=== PATIENT | female | born 1955 | race Caucasian/White ===

== ENCOUNTER → 2023-04-19 10:38 | Outpatient (REF) | payer MEDICARE, SELFPAY ==
--- NOTE | 2023-04-19 10:45 | CA_ITS ---
Transthoracic Echocardiogram Patient (Last, First, Middle): Sharron Larson, Gender: Female Date of : 1955 Age: 67 Procedure Date: 04/19/2023 Procedure Type: Transthoracic Echocardiogram Location: Short Height: 165.1 cm Weight: 72.58 kg BSA: 1.80 m2 Heart Rate: 59 bpm BP: 122 / 72 mmHg Passementerie Worker: LOIS Referring MD: Suni Davis MD Aircraft Cabin Cleaner: Bradford Freedman MD Symptoms: SOB R06.02 Study Quality: Adequate ECG Rhythm: Bradycardia Conclusions: - Essentially normal study Findings Left Ventricle Normal left ventricular size, thickness, and systolic function. The visually estimated ejection fraction is between 65-70%. Diastolic function is normal for age. Peak GLS is -21.6%, within normal limits. Right Ventricle Normal right ventricular cavity size and systolic function. Atria Both atria are normal in size. There is no evidence of interatrial shunt. Aortic Valve Normal aortic valve structure and function. There is no aortic valve stenosis. There is no aortic valve regurgitation. Mitral Valve Normal mitral valve structure and function. There is trace mitral valve regurgitation. There is no mitral valve stenosis. Pulmonic Valve The pulmonic valve is likely normal. There is trace to mild pulmonic valve regurgitation. Tricuspid Valve Normal tricuspid valve structure. There is trace tricuspid valve regurgitation. The right ventricular systolic pressure is normal. The right ventricular systolic pressure is 22 mmHg. Normal right atrial pressure. There is no evidence of pulmonary hypertension. Great Vessels All visible segments of the aorta are normal in size. The pulmonary artery was not well visualized. Venous The inferior vena cava is normal in size and collapses greater than 50% with inspiration. Pericardium/Pleural There is no evidence of pericardial effusion. Prior Study Comparison No prior study available for comparison. Measurements 2D Linear Measurements IVSd: 0.90 0.6-0.9/0.6-1.0 cm LVIDd: 4.80 3.9-5.3/4.2-5.9 cm LVIDd Index: 2.67 2.4-3.2/2.2-3.1 cm/m2 LVIDs: 3.10 2.0-3.6 cm LVPWd: 0.70 0.7-1.1 cm LA Diam: 3.40 2.7-3.8/3.0-4.0 cm LAIDs Index: 1.89 1.5-2.3 cm/m2 LV Mass: 157.61 67-162/88-224 g LV Mass Index: 87.56 43-95/49-115 g/m2 LVOT Diam: 2.00 3.0+(-)1.3 cm 2D Systolic Function EF 4C: 64.50 >55% EF 2C: 68.40 >55% EF BiP: 66.50 >55% Mitral Valve MV Pk E: 0.71 MV PK A: 0.55 MV Decel Time: 196.00 E/A: 1.30 E'Lateral: 10.70 E'Medial: 7.51 E/E' Med: 9.50 E/E' Lat: 6.60 PHT: 57.00 MVA PHT: 3.86 Decel Real: 3.63 Aortic Valve AoV Pk Lj: 1.26 AoV Pk Grad: 6.00 GRACIA: 2.27 LVOT LVOT Pk Lj: 0.92 LVOT Mn Lj: 0.62 LVOT VTI: 0.23 LVOT Pk Grad: 3.00 LVOT Mn Grad: 2.00 LVOT Diam: 2.00 LVOT Area: 3.14 Diastolic Function MV Pk E: 0.71 MV Pk A: 0.55 E/A: 1.30 E'Medial: 7.51 E/E' Med: 9.50 E' Laterial: 10.70 E/E' Lat: 6.60 Right Ventricle TAPSE (mm): 23.00 TVS' Lj: 10.20 Tricuspid Valve TR Pk Lj: 2.16 TR Pk Grad: 19.00 RA Press: 3.00 RVSP: 22.00 Great Vessels Aorta Sinus of Valsalva: 3.50 2.0-3.5 cm Ao Asc: 3.20 2.1-3.4 cm Ao Arch: 2.80 Pulmonary Veins Pulm Vein S/D 1.30 Pulmonary Valve PV Pk Lj: 0.77 Peak PV Grad: 2.00 Updated in Other Vendor System with Status of Final Bradford Freedman MD electronically signed on 04/19/2023 4:48:25 PM with status of Final
== END ==
LOC: HO.CARD 10:38
PROVIDERS: PCP Internal Medicine; Visit Provider Internal Medicine
DX: R06.02 Shortness of breath (principal)
CPT/HCPCS: 93306; 93356

== ENCOUNTER → 2023-04-19 10:45 | Outpatient (BNV) | payer MEDICARE, SELFPAY | PROVIDERS: PCP Internal Medicine; Visit Provider Internal Medicine Cardiovascular Disease | DX: I37.1 Nonrheumatic pulmonary valve insufficiency (principal) | CPT/HCPCS: 93306 ==